=== PATIENT | male | born 1965 | race Caucasian/White ===

== ENCOUNTER 2019-12-05 01:27 | Emergency (ER) | payer BC, SELFPAY ==
[2019-12-05] MEDS ORDERED: Ibuprofen 200 MG TAB ONE (01:49)
[2019-12-05] MEDS ORDERED: Dexamethasone 20 MG/5 ML VIAL ONE (02:28)
[2019-12-05] MEDS ORDERED: Oseltamivir 75 MG CAP ONE (02:28)
[2019-12-05] MEDS ORDERED: Albuterol Sulfate 2.5 mg/3 ml Neb ONE (02:33)
--- NOTE | 2019-12-05 09:06 | RAD ---
TWO VIEWS OF THE CHEST: COMPARISON: 02/01/2015. HISTORY: Cold and flu-like symptoms for 1 week with cough. FINDINGS: Two views of the chest show a normal-size cardiomediastinal silhouette. Atherosclerotic calcificatio ns are seen in the aorta. The patient is status post sternotomy. There is no evidence of consolidat ion, mass, or pleural effusion. IMPRESSION: No evidence of acute cardiopulmonary disease. POS: C
== END 2019-12-05 03:00 | disposition home or self-care (01) ==
LOC: NAV ERS 01:27
DX: J11.1 Influenza due to unidentified influenza virus with other respiratory manifestations (principal); J45.909 Unspecified asthma, uncomplicated; I10 Essential (primary) hypertension; E78.5 Hyperlipidemia, unspecified; E78.00 Pure hypercholesterolemia, unspecified; F32.9 Major depressive disorder, single episode, unspecified; F17.210 Nicotine dependence, cigarettes, uncomplicated; Z79.899 Other long term (current) drug therapy
CPT/HCPCS: 71046; 87081; 87430; 87804; 94640; 96372; J1100; J7611; J7620